=== PATIENT | female | born 1985 | race Caucasian/White ===

== ENCOUNTER 2022-09-20 15:49 | Emergency (ER) | payer BC, SELFPAY ==
[2022-09-20 15:50] VITALS: BP 129/88; PULSE 100; RESP 16; TEMP 36.5; O2SAT 100
--- NOTE | 2022-09-20 16:00 | ED.FEMALEGU ---
HPI - Female Genitourinary General Chief complaint: Urogenital-Female Stated complaint: Urinary Problem Time Seen by Provider: 09/20/22 15:50 Source: patient Mode of arrival: ambulatory Limitations: no limitations History of Present Illness HPI Narrative: Althea is a 37-year-old female patient presenting to the clinic today with complaints of possible urinary tract infection. She reports she has had urinary symptoms x2 days. Reports that she had a kidney affection approximately 1 year ago and this feels a lot like a kidney infection again. Is having some pain to the left flank. She denies any fever, chills, or abdominal pain. She is also concerned about a sexually transmitted infection. States that there was here say that her significant other was sleeping around and he had gonorrhea. She reports she is having some white vaginal discharge. No vaginal pain. Last sexual intercourse was 2 days ago. She would like to have STI testing today while in the clinic. Related Data Allergies Allergy/AdvReac Type Severity Reaction Status Date / Time Sulfa (Sulfonamide Allergy Severe Hives / Verified 02/11/12 13:28 Antibiotics) Red Face Review of Systems Review of Systems: Pertinent positives per HPI. Patient denies any fever, chills, rash, headache, visual changes, dizziness, cough, runny nose, sore throat, shortness of breath, chest pain, palpitations, nausea, vomiting, diarrhea, constipation, abdominal pain, or any urinary issues. PMFSH Comments At the time of my signature, I reviewed and agree with the nursing past medical, surgical, social, and family history. There is no relevant family history pertinent to the patient complaint. Exam Narrative: General: Well-developed, well nourished, in no apparent distress Head: Normocephalic, atraumatic. Cardio: Regular rate and rhythm, s1 and s2 normal, no murmur appreciated. Resp: Clear to auscultation bilaterally, no rhonchi, rales, wheezing or rubs. Abdomen: Soft, pliable, bowel sounds present in all quadrants, non-tender to palpation, mild left CVAT tenderness. : Pelvic exam performed with (Imani RODAS) at bedside. Verbal consent obtained from patient. Normal external female genitalia without lesions or masses, Urinary meatus: patent without discharge, Vagina: No lesions, masses, scant white discharge in the pelvic vault Cervix: pink without mass, lesions, discharge, or tenderness. Adnexa: without palpable mass or tenderness. Course Course Emergency Course: Portions of this record may have been created with voice recognition software. Level of Care: Express Care Visit Vital Signs Vital signs: Vital signs reviewed MDM - Female Genitourinary MDM Narrative Medical decision making narrative: At the time of visit patient is resting comfortably on the exam table. UA dip negative for any sign of infection. Preg test was negative. Pelvic exam was performed and swab for Trichomonas, gonorrhea, chlamydia, and bacterial vaginosis was obtained. Due to probable exposure I will go ahead and treat patient with Rocephin 500 mg in the clinic today to cover gonorrhea. Prescriptions for metronidazole and doxycycline was sent to the pharmacy to cover for Trichomonas/BV and chlamydia. Anticipatory guidance was reviewed with the patient she voiced understanding. Supportive measures were also discussed and patient voiced understanding of the discharge instructions and agrees to treatment plan. Differential Diagnosis Differential diagnosis: Likely urinary tract infection, bacterial vaginosis, trichomoniasis, cervicitis, vaginitis and cystitis Discharge Plan Discharge Clinical Impression: Possible exposure to STD, Dysuria, Acute flank pain High risk sexual behavior Qualifiers: High risk sexual behavior type: heterosexual Qualified Code(s): Z72.51 - High risk heterosexual behavior Patient Disposition: Home, Self-Care Condition: Stable Instructions: Antibiotic Form,
[2022-09-20] MEDS: cefTRIAXone 500 MG, LIDOCAINE HCL 1% LOCAL INJ 1 ML IM (16:28)
== END 2022-09-20 16:37 | disposition home or self-care (01) ==
PROVIDERS: Emergency Provider Nurse Practitioner Family
DX: R10.9 Unspecified abdominal pain (principal); R30.0 Dysuria; Z72.51 High risk heterosexual behavior
CPT/HCPCS: 81003; 87070; 87491; 87591; 87661; 96372; 99214; G0463; J0696

== ENCOUNTER 2022-11-12 12:43 | Emergency (ER) | payer BC, SELFPAY ==
--- NOTE | 2022-11-12 12:45 | ED.GENADULT ---
HPI - General Adult General Chief complaint: Dental/Oral Stated complaint: Face Swelling and Pain Time Seen by Provider: 11/12/22 12:49 Source: patient, RN notes reviewed and old records reviewed Mode of arrival: ambulatory Limitations: no limitations History of Present Illness HPI narrative: 37-year-old female presents to the [facility] with complaints of right-sided facial swelling and dental pain started just prior to arrival. Patient states the pain and swelling started 2 hours prior to arrival. No erythema. No rashes. No treatment prior to arrival Related Data Allergies Allergy/AdvReac Type Severity Reaction Status Date / Time Sulfa (Sulfonamide Allergy Severe Hives / Verified 02/11/12 13:28 Antibiotics) Red Face Review of Systems Review of Systems: All systems reviewed & are unremarkable except as noted in HPI and below Constitutional: Constitutional: Reports no additional constitutional complaints Eyes: Eyes: Reports no additional eye complaints ENT: Reports as per HPI Cardiovascular: Cardiovascular: Reports no additional cardiovascular complaints, Denies chest pain and Denies dyspnea Respiratory: Respiratory: Reports no additional respiratory complaints, Denies chest congestion, Denies cough and Denies dyspnea Gastrointestinal: Gastrointestinal: Reports no additional gastrointestinal complaints, Denies abdominal pain, Denies nausea and Denies vomiting Musculoskeletal: Musculoskeletal: Reports no additional musculoskeletal complaints Integumentary/Breasts: Skin/Breast: Reports system reviewed and no additional complaints, except as docu Neurologic: Reports system reviewed and no additional complaints, except as documented Psychiatric: Psychiatric: Reports no additional psychiatric complaints Allergic/Immunologic: Allergic/Immunologic: Reports no additional allergic/immunologic complaints [facility] Past Medical History Medical History (Updated 11/13/22 @ 11:48 by Lexus Panda APRN) Seizures Comments At the time of my signature, I reviewed and agree with the nursing past medical, surgical, social, and family history. There is no relevant family history pertinent to the patient complaint. Exam Const: General: cooperative, no acute distress, well developed, alert, ill appearing chronically, intoxicated appearing, tired appearing, uncomfortable and well nourished Nutritional Appearance: well nourished Orientation/consciousness: patient oriented x3 Limitations: no limitations HENMT: Head: normal to inspection Ears: hearing grossly normal bilaterally, external ears normal, TM's normal bilaterally, EAC's normal and mastoids normal Face/Nose/Sinus: Normal external nose present, Normal nares present, Normal nasal mucous membranes and turbinates present, normal facial exam and face symmetric Face and sinus: normal facial exam Mouth: Yes Normal oral and palatal mucosa present, Yes lip normal, Yes moist mucous membranes and Yes malodorous breath Teeth and gingiva: abnormal tooth and associated gingiva, caries and poor dentition Throat: posterior oropharynx normal and uvula midline Other: Right upper molar, decayed low gum line, purulent drainage from center of tooth with surrounding erythema to the gingiva, swelling. Very poor dentition throughout mouth. Swelling of the cheek noted, tenderness to palpation without increased erythema, no cellulitic changes. No mastoid tenderness Eyes: General: appearance normal, both eyes and all related structures Alignment and Position: alignment normal Periorbital: periorbital findings normal Pupils: Equal, round and reactive pupils present EOM: EOMs intact bilaterally Neck: Neck: normal visual inspection, full ROM, no lymphadenopathy and no meningeal signs Chest: Chest palpation & inspection: normal inspection of the chest Resp: Effort & Inspection: normal respiratory effort and able to speak in complete sentences Cardio: Rate: regular rate Rhythm: regular
[2022-11-12 12:49] VITALS: BP 126/80; PULSE 79; RESP 16; TEMP 35.7; O2SAT 97
== END 2022-11-12 13:06 | disposition home or self-care (01) ==
PROVIDERS: Emergency Provider Nurse Practitioner; PCP Emergency Medicine
DX: K04.7 Periapical abscess without sinus (principal)
CPT/HCPCS: 99213; G0463